=== PATIENT | male | born 1985 | race Two or more races ===

== ENCOUNTER 2023-07-27 09:22 | Emergency (ER) | payer OTHER ==
[2023-07-27 09:48] LABS: #Basophils 0.1 thou/uL (0.0-0.2); #Eosinphils 0.2 thou/uL (0.0-0.7); #Monocytes 0.7 thou/uL (0.11-0.59); #Neutrophils 1.5 thou/uL (1.40-6.50); %Basophils 1.5 % (0.0-1.0); %Eosinophils 4.8 % (0.0-10.0); %Monocytes 15.4 % (0.0-10.0); %Neutrophils 31.3 % (42.0-75.0); Hematocrit 45.3 % (42.0-52.0); Hemoglobin 13.4 g/dL (14.0-18.0); Mean Corpuscular HGB CONC 29.6 g/dL (32.0-36.0); Mean Corpuscular Hemoglobin 23.2 pg (27.0-31.0); Mean Corpuscular Volume 78.4 fl (78.0-98.0); Platelet Count 218 10x3/uL (130-400); RBC Distribution Width 14.8 % (11.5-14.5); Red Blood Cell (RBC) Count 5.78 mill/uL (4.70-6.10); White Blood Cell (WBC) Count 4.8 10x3/uL (4.8-10.8)
[2023-07-27] MEDS ORDERED: Lidocaine 1% PF 5 ML VIAL ONE (09:52)
[2023-07-27 10:12] LABS: ALT (SGPT) 16 U/L (8-55); AST (SGOT) 45 U/L (5-34); Albumin 3.9 g/dL (3.5-5.0); Alkaline Phosphatase 87 U/L (40-110); Anion Gap 13 mmol/L (10-20); BUN (Urea Nitrogen) 12 mg/dL (8.9-20.6); Bilirubin, Total 0.4 mg/dL (0.2-1.2); Calc. Creatinine Clearance 0 mL/min (70-130); Calcium 8.7 mg/dL (7.8-10.44); Carbon Dioxide 21 mmol/L (22-29); Chloride 109 mmol/L (98-107); Estimated GFR 113; Globulin 3.2 g/dL (2.4-3.5); Glucose 77 mg/dL (70-105); Potassium 4.9 mmol/L (3.5-5.1); Protein, Total 7.1 g/dL (6.0-8.3); Sodium 138 mmol/L (136-145)
[2023-07-27 10:26] LABS: Troponin I Less than 0.010 ng/mL (< 0.028)
[2023-07-27] MEDS ORDERED: Atropine Sulfate 1 mg/10 ml Syringe ONE (13:30)
[2023-07-27] MEDS ORDERED: Acetaminophen 500 MG TAB ONE (13:31)
== END 2023-07-27 16:00 | disposition short-term general hospital (02) ==
LOC: ERS 09:22 → EEVIPCON 09:22 → ERS 16:00
DX: R55 Syncope and collapse (principal); S01.111A Laceration without foreign body of right eyelid and periocular area, initial encounter; R00.1 Bradycardia, unspecified; Z23 Encounter for immunization; W22.8XXA Striking against or struck by other objects, initial encounter
CPT/HCPCS: 12011; 36416; 70450; 80053; 84484; 85025; 93005; 96374; J0461